=== PATIENT | female | born 1940 | race Caucasian/White ===

== ENCOUNTER 2016-10-17 11:10 | Inpatient (IN) | payer MEDICARE, OTHER ==
[~2016-10-17 11:10] MED LIST: ADVAIR 2501 DISK W/D; ADVAIR 2501 DISK W/D IH; ALBUTEROL17 GM INH; ALBUTEROL2.5 MG/3 M INH; ALLERGY4 MG PO; ASPIRIN325 M3 PO; ASPIRIN325 MG PO; ASPIRIN81 MG PO; BACTRIM DS TAB1 EAC2 PO; CALCIUM PO; CARDIZEM CD180 MG PO; CARDIZEM60 M1 PO; CYCLOBENZAPRINE5 M1 PO; DELTASONE50 MG PO; DIURETIC; FLONASE16 G1; HYDROCHLOROTH12.5 M1 PO; HYDROCHLOROTH12.5 M2 PO; IPRATROPIUM0.2 MG/ML IH; LEVAQUIN500 M1 PO; LEVAQUIN750 M1 PO; LEVAQUIN750 MG PO; MAXZIDE 75/50 T1 TAB; MUCINEX1200 MG/BO PO; OMEGA 3 FISH1 CAP.EC PO; OMEPRAZOLE40 MG PO; PERFOROMIS20 MCG/2 M IH; POTASSIUM; POTASSIUM CHLO10 ME2 PO; POTASSIUM CHLO10 MEQ PO; PREDNISONE10 M1; PREDNISONE10 MG PO; PREDNISONE50 M1 PO; PROAIR HFA8.5 GM INH; PULMICORT0.25 MG/2 IH; SPIRIVA18 MCG INH; TESSALON PERLE100 MG PO; TRIAMTERENE/HC1 EACH PO; VITAMIN D 22000 UNIT PO; VITAMIN D-40400 UNIT PO; VITAMIN D2000 UNIT PO; WELCHOL625 MG; XARELTO20 MG PO; XOPENEX HFA15 G1 INH; XOPENEX0.63 MG/1 IH; ZETIA10 M1 PO; ZETIA10 MG PO; ZYRTEC10 M7 PO; [UNRECOGNIZED DRUG - OTHER]; [UNRECOGNIZED DRUG - OTHER] PO
[2016-10-17 11:37] LABS: CREATININE 0.46 mg/dl (0.67-1.17); eGFR VALUE FOR BLACK >90 mL/Min
[2016-10-17 11:38] LABS: BASO % 0.3 % (0-2); EOS % 0.2 % (0-7); HCT-HEMATOCRIT 42.2 % (34.0-49.0); HGB-HEMOGLOBIN 14.1 gm/dl (12.0-15.5); IMMATURE GRANULOCYTES ABSOLUTE 0.02 tho/cmm (0-0.03); IMMATURE GRANULOCYTES PERCENT 0.2 % (0-0.3); LYMPH % 11.6 % (20-45); LYMPH ABSOLUTE COUNT 1.1 tho/cmm (0.8-4.5); MCH (MEAN CORPUSCULAR HGB) 29.2 pg (28.0-32.0); MCHC MEAN CORPUSCULAR HGB CONC 33.4 % (32.0-36.0); MCV (MEAN CELL VOLUME) 87.4 fl (82.0-96.0); MEAN PLATELET VOLUME 10.2 cmc (9.4-12.4); MONO % 5.7 % (0-12); MONOCYTE ABSOLUTE COUNT 0.5 tho/cmm (0.0-1.2); NEUTROPHIL ABSOLUTE COUNT 7.6 tho/cmm (1.6-8.0); NEUTROPHIL-AUTOMATED 7.6 tho/cmm (1.6-8.0); PLATELET COUNT 283 tho/cmm (150-450); RED BLOOD COUNT 4.83 mil/cmm (4.00-5.20); RED CELL DISTRIBUTION WIDTH 12.1 % (12.4-16.4); WHITE BLOOD COUNT 9.2 tho/cmm (4.0-10.0)
[2016-10-17 11:50] LABS: URINE BILIRUBIN NEGATIVE (NEG); URINE BLOOD NEGATIVE (NEG); URINE GLUCOSE (UA) NEGATIVE (NEG); URINE KETONE SMALL (NEG); URINE LEUKOCYTE ESTERASE POSITIVE (NEG); URINE NITRITE NEGATIVE (NEG); URINE PROTEIN MODERATE (NEG); URINE SPECIFIC GRAVITY 1.005 (1.003-1.030)
[2016-10-17 11:51] LABS: URINE APPEARANCE CLEAR; URINE COLOR DARK YELLOW
[2016-10-17 11:58] LABS: ALB/GLOB RATIO 1.1 (0.8-2.0); ALBUMIN 4.1 g/dl (3.5-5.0); ALKALINE PHOSPHATASE 72 U/L (33-138); ALT/SGPT 14 U/L (12-78); ANION GAP 9 mmol/L (0-20); AST/SGOT 18 U/L (10-40); BILIRUBIN,TOTAL 0.5 mg/dl (0-1.5); BLOOD UREA NITROGEN 13 mg/dl (6-24); CALCIUM 9.5 mg/dl (8.5-10.5); CARBON DIOXIDE-VENOUS 34 mmol/L (22-32); CHLORIDE 97 mmol/l (96-110); GLUCOSE 109 mg/dL (70-110); POTASSIUM 3.8 mmol/L (3.7-5.1); SODIUM 136 mmol/L (135-145); URINE WBC 0-2 /[HPF] (0-5)
[2016-10-17 11:59] LABS: URINE EPITHELIAL CELLS 0-2 /[HPF] (0-10); URINE MUCUS 1+; URINE RBC 0-2 /[HPF] (0-5)
[2016-10-17] MEDS ORDERED: XANAX0.25 M1 PO (15:07)
[2016-10-17] MEDS ORDERED: PULMICORT0.25 MG/1 NEB (15:38)
[2016-10-17] MEDS ORDERED: PERFOROMIS20 MCG/21 NEB (15:38)
[2016-10-17] MEDS ORDERED: IPRATROPIU0.2 MG/1 M NEB (15:43)
[2016-10-18 06:14] LABS: ANION GAP 8 mmol/L (0-20); BASO % 0.1 % (0-2); BLOOD UREA NITROGEN 13 mg/dl (6-24); CALCIUM 8.8 mg/dl (8.5-10.5); CARBON DIOXIDE-VENOUS 33 mmol/L (22-32); CHLORIDE 99 mmol/l (96-110); CREATININE 0.58 mg/dl (0.50-1.10); GLUCOSE 110 mg/dL (70-110); HCT-HEMATOCRIT 39.4 % (34.0-49.0); HGB-HEMOGLOBIN 12.9 gm/dl (12.0-15.5); IMMATURE GRANULOCYTES ABSOLUTE 0.01 tho/cmm (0-0.03); IMMATURE GRANULOCYTES PERCENT 0.1 % (0-0.3); LYMPH % 9.6 % (20-45); LYMPH ABSOLUTE COUNT 0.9 tho/cmm (0.8-4.5); MCH (MEAN CORPUSCULAR HGB) 28.5 pg (28.0-32.0); MCHC MEAN CORPUSCULAR HGB CONC 32.7 % (32.0-36.0); MCV (MEAN CELL VOLUME) 87.2 fl (82.0-96.0); MEAN PLATELET VOLUME 10.3 cmc (9.4-12.4); MONO % 8.6 % (0-12); MONOCYTE ABSOLUTE COUNT 0.8 tho/cmm (0.0-1.2); NEUTROPHIL ABSOLUTE COUNT 7.5 tho/cmm (1.6-8.0); NEUTROPHIL-AUTOMATED 7.5 tho/cmm (1.6-8.0); NEUTROPHILS % 81.6 % (40-80); PLATELET COUNT 271 tho/cmm (150-450); POTASSIUM 3.9 mmol/L (3.7-5.1); RED BLOOD COUNT 4.52 mil/cmm (4.00-5.20); RED CELL DISTRIBUTION WIDTH 12.1 % (12.4-16.4); SODIUM 136 mmol/L (135-145); WHITE BLOOD COUNT 9.2 tho/cmm (4.0-10.0); eGFR VALUE FOR BLACK >90 mL/Min
[2016-10-20 06:26] LABS: BASO % 0.3 % (0-2); EOS % 1.3 % (0-7); EOSINOPHIL ABSOLUTE COUNT 0.1 tho/cmm (0.0-0.7); IMMATURE GRANULOCYTES ABSOLUTE 0.01 tho/cmm (0-0.03); IMMATURE GRANULOCYTES PERCENT 0.1 % (0-0.3); LYMPH % 15.6 % (20-45); LYMPH ABSOLUTE COUNT 1.1 tho/cmm (0.8-4.5); MCH (MEAN CORPUSCULAR HGB) 28.5 pg (28.0-32.0); MCHC MEAN CORPUSCULAR HGB CONC 31.6 % (32.0-36.0); MCV (MEAN CELL VOLUME) 90.3 fl (82.0-96.0); MEAN PLATELET VOLUME 10.2 cmc (9.4-12.4); MONO % 8.9 % (0-12); MONOCYTE ABSOLUTE COUNT 0.6 tho/cmm (0.0-1.2); NEUTROPHILS % 73.8 % (40-80); PLATELET COUNT 210 tho/cmm (150-450); RED BLOOD COUNT 4.21 mil/cmm (4.00-5.20); RED CELL DISTRIBUTION WIDTH 12.2 % (12.4-16.4); WHITE BLOOD COUNT 6.8 tho/cmm (4.0-10.0)
[2016-10-20 06:35] LABS: BLOOD UREA NITROGEN 17 mg/dl (6-24); CALCIUM 8.3 mg/dl (8.5-10.5); CARBON DIOXIDE-VENOUS 31 mmol/L (22-32); CHLORIDE 102 mmol/l (96-110); CREATININE 0.41 mg/dl (0.50-1.10); GLUCOSE 72 mg/dL (70-110); SODIUM 140 mmol/L (135-145); eGFR VALUE FOR BLACK >90 mL/Min
[2016-10-20 06:37] LABS: ANION GAP 11 mmol/L (0-20); MAGNESIUM 2.3 mg/dl (1.8-2.6); POTASSIUM 3.6 mmol/L (3.7-5.1)
[2016-10-21 05:27] LABS: BASO % 0.6 % (0-2); EOS % 1.1 % (0-7); EOSINOPHIL ABSOLUTE COUNT 0.1 tho/cmm (0.0-0.7); HCT-HEMATOCRIT 35.8 % (34.0-49.0); HGB-HEMOGLOBIN 11.5 gm/dl (12.0-15.5); IMMATURE GRANULOCYTES ABSOLUTE 0.02 tho/cmm (0-0.03); IMMATURE GRANULOCYTES PERCENT 0.3 % (0-0.3); LYMPH % 12.6 % (20-45); LYMPH ABSOLUTE COUNT 0.9 tho/cmm (0.8-4.5); MCH (MEAN CORPUSCULAR HGB) 28.6 pg (28.0-32.0); MCHC MEAN CORPUSCULAR HGB CONC 32.1 % (32.0-36.0); MCV (MEAN CELL VOLUME) 89.1 fl (82.0-96.0); MEAN PLATELET VOLUME 9.9 cmc (9.4-12.4); MONO % 11.9 % (0-12); MONOCYTE ABSOLUTE COUNT 0.9 tho/cmm (0.0-1.2); NEUTROPHIL ABSOLUTE COUNT 5.3 tho/cmm (1.6-8.0); NEUTROPHIL-AUTOMATED 5.3 tho/cmm (1.6-8.0); NEUTROPHILS % 73.5 % (40-80); PLATELET COUNT 205 tho/cmm (150-450); RED BLOOD COUNT 4.02 mil/cmm (4.00-5.20); RED CELL DISTRIBUTION WIDTH 12.2 % (12.4-16.4); WHITE BLOOD COUNT 7.2 tho/cmm (4.0-10.0)
[2016-10-21 05:42] LABS: ANION GAP 13 mmol/L (0-20); BLOOD UREA NITROGEN 12 mg/dl (6-24); CALCIUM 7.8 mg/dl (8.5-10.5); CARBON DIOXIDE-VENOUS 27 mmol/L (22-32); CHLORIDE 102 mmol/l (96-110); CREATININE 0.31 mg/dl (0.50-1.10); MAGNESIUM 2.2 mg/dl (1.8-2.6); POTASSIUM 3.8 mmol/L (3.7-5.1); SODIUM 138 mmol/L (135-145); eGFR VALUE FOR BLACK >90 mL/Min
[2016-10-21 05:46] LABS: GLUCOSE 65 mg/dL (70-110)
[2016-10-22 06:57] LABS: BASO % 0.6 % (0-2); EOS % 2.8 % (0-7); EOSINOPHIL ABSOLUTE COUNT 0.1 tho/cmm (0.0-0.7); HCT-HEMATOCRIT 34.9 % (34.0-49.0); HGB-HEMOGLOBIN 11.2 gm/dl (12.0-15.5); IMMATURE GRANULOCYTES ABSOLUTE 0.01 tho/cmm (0-0.03); IMMATURE GRANULOCYTES PERCENT 0.2 % (0-0.3); LYMPH ABSOLUTE COUNT 0.8 tho/cmm (0.8-4.5); MCH (MEAN CORPUSCULAR HGB) 28.4 pg (28.0-32.0); MCHC MEAN CORPUSCULAR HGB CONC 32.1 % (32.0-36.0); MCV (MEAN CELL VOLUME) 88.4 fl (82.0-96.0); MEAN PLATELET VOLUME 10.4 cmc (9.4-12.4); MONO % 12.3 % (0-12); MONOCYTE ABSOLUTE COUNT 0.6 tho/cmm (0.0-1.2); NEUTROPHIL ABSOLUTE COUNT 3.3 tho/cmm (1.6-8.0); NEUTROPHIL-AUTOMATED 3.3 tho/cmm (1.6-8.0); NEUTROPHILS % 67.1 % (40-80); PLATELET COUNT 207 tho/cmm (150-450); RED BLOOD COUNT 3.95 mil/cmm (4.00-5.20); RED CELL DISTRIBUTION WIDTH 12.2 % (12.4-16.4)
[2016-10-22 07:00] LABS: ANION GAP 13 mmol/L (0-20); BLOOD UREA NITROGEN 5 mg/dl (6-24); CARBON DIOXIDE-VENOUS 29 mmol/L (22-32); CHLORIDE 101 mmol/l (96-110); GLUCOSE 77 mg/dL (70-110); MAGNESIUM 1.8 mg/dl (1.8-2.6); POTASSIUM 3.4 mmol/L (3.7-5.1); SODIUM 140 mmol/L (135-145); eGFR VALUE FOR BLACK >90 mL/Min
== END 2016-10-22 18:20 | DRG 389 ==
LOC: LAB 11:10 → 5WF 14:49
PROVIDERS: Internal Medicine; Nurse Practitioner; Physician Assistant; ADMIT Family Medicine
DX: K56.5 Intestinal adhesions [bands] with obstruction (postinfection) (principal); J96.11 Chronic respiratory failure with hypoxia; Z99.81 Dependence on supplemental oxygen; I65.23 Occlusion and stenosis of bilateral carotid arteries; J44.9 Chronic obstructive pulmonary disease, unspecified; I10 Essential (primary) hypertension; R60.0 Localized edema; E78.5 Hyperlipidemia, unspecified; I25.10 Atherosclerotic heart disease of native coronary artery without angina pectoris; Z79.82 Long term (current) use of aspirin; Z53.9 Procedure and treatment not carried out, unspecified reason; Z88.1 Allergy status to other antibiotic agents; Z88.8 Allergy status to other drugs, medicaments and biological substances; Z90.49 Acquired absence of other specified parts of digestive tract; I87.2 Venous insufficiency (chronic) (peripheral); M85.80 Other specified disorders of bone density and structure, unspecified site; E87.6 Hypokalemia; E16.2 Hypoglycemia, unspecified
CPT/HCPCS: J1650; J2270; J2405; J3480; J7030; Q9967